=== PATIENT | female | born 1945 | race Caucasian/White ===

== ENCOUNTER 2019-08-06 23:35 | Inpatient (IN) | payer MEDICARE ==
[~2019-08-06] VITALS: Ht 152.4 cm; Wt 74.1 kg
[~2019-08-06 23:35] MED LIST: CYCLOBENZAPRINE10 MG PO
[2019-08-06 23:38] VITALS: BP 191/88
[2019-08-07] VITALS (15 sets, daily range): BP systolic 137–203; BP diastolic 57–125
[2019-08-07 01:10] LABS: HEMATOCRIT 43.8 % (37.0-47.0); MEAN CELL VOLUME 89.9 fl (81.0-99.0); MEAN CORPUSCULAR HGB 30.8 pg (27.0-31.0); MEAN CORPUSCULAR HGB CONC 34.2 g/dl (33.0-37.0); MEAN PLATELET VOLUME 12.7 fl (9.6-12.3); PLATELET COUNT AUTOMATED 143 10*3/uL (130-400); RED BLOOD COUNT 4.87 10*6/uL (4.10-5.10); WHITE BLOOD COUNT 14.1 10*3/uL (4.8-10.8)
[2019-08-07 01:27] LABS: ALBUMIN 3.8 gm/dl (3.1-4.5); ALKALINE PHOSPHATASE 116 U/L (45-117); BUN 15 mg/dl (7-24); CHLORIDE 108 mmol/L (98-107); CREATININE 0.92 mg/dL (0.55-1.02); POTASSIUM 3.5 mmol/L (3.5-5.1); SGOT/AST 41 IU/L (3-35); SGPT/ALT 27 U/L (12-78); SODIUM 138 mmol/L (136-145); TOTAL PROTEIN 7.3 gm/dL (6.4-8.2)
[2019-08-07 01:30] LABS: TROPONIN I < 0.015 ng/ml (<0.045)
[2019-08-07 01:37] LABS: PLATELET SUFFICIENCY NORMAL (NORMAL); TOTAL CELLS COUNTED 100 #CELLS
--- NOTE | 2019-08-07 10:03 | NUR ---
PT RESTING WITHOUT ANY COMPLAINTS, NO ACTIVE VOIMTING NOTED. FAMILY AT THE BEDSIDE. PT WAS WANTING TO BE ADMITTED HERE IF POSSIBLE. NOTIFIED DR FRANKLIN WITH THERE REQUEST. HOSPITALIST TO BE NOTIFIED.
--- NOTE | 2019-08-07 11:30 | NUR ---
A 73, admitted to , under the services of DANIELLE Cherry DO with a diagnosis of GI BLEED, HTN. Chief complaint is FALL, NAUSEA, VOMITING. Patient arrived via bed from ER. Monitor applied. Initial assessment completed. Vital signs taken and recorded. DANIELLE CHERRY DO notified of admission to the unit. Orders received. See assessment for past medical history, medications and allergies. Patient and/or family oriented to unit. [facility] visitation policy reviewed. Clothing/patient valuable form completed. SATURNINO ROMERO
[2019-08-07] MEDS ORDERED: PRESERVISION A1 EAC1 PO (11:37)
[2019-08-07] MEDS ORDERED: ALEVE220 M1 PO (11:37)
--- NOTE | 2019-08-07 12:09 | NUR ---
NICKIE CUEVAS NOTIFIED OF BP
[2019-08-07 17:57] LABS: BLOOD TRACE-LYSED (NEGATIVE); CLARITY SL CLOUDY (CLEAR); COLOR YELLOW (YELLOW); SPECIFIC GRAVITY 1.025 (1.005-1.030)
[2019-08-07 17:58] LABS: BACTERIA 3+; BILIRUBIN NEGATIVE (NEGATIVE); GLUCOSE NEGATIVE (NEGATIVE); KETONE NEGATIVE (NEGATIVE); LEUKO ESTERASE NEGATIVE (NEGATIVE); NITRITE NEGATIVE (NEGATIVE); UROBILINOGEN 0.2 E.U./dl (0.2-1.0); WBC 31-40 wbc/hpf (0-5)
[2019-08-07 17:59] LABS: RBC 0-2 rbc/hpf (0-2)
[2019-08-07 18:06] LABS: HEMATOCRIT 39.8 % (37.0-47.0); HEMOGLOBIN 13.7 g/dl (12.0-16.0)
--- NOTE | 2019-08-07 19:27 | NUR ---
NOTIFIED OF LABS
[2019-08-08] VITALS (7 sets, daily range): BP systolic 138–184; BP diastolic 56–90
--- NOTE | 2019-08-08 | NUR ---
PT RESTING IN BED WITH EYES CLOSED, AWAKENS WITH EASE. RESP NONLABORED. NO ACUTE DISTRESS NOTED. NO COMPLAINTS VOICED. IV PATENT AND IVF'S INFUSING ORDERED WITHOUT DIFFICULTY.
[2019-08-08 08:00] LABS: BASO % 0.2 % (0.0-1.0); EOS % 0.1 % (1.0-4.0); HEMATOCRIT 41.7 % (37.0-47.0); HEMOGLOBIN 14.1 g/dl (12.0-16.0); LYMPH # 1.5 10*3/uL (1.3-4.4); LYMPH % 16.3 % (27.0-41.0); MEAN CELL VOLUME 89.3 fl (81.0-99.0); MEAN CORPUSCULAR HGB 30.2 pg (27.0-31.0); MEAN CORPUSCULAR HGB CONC 33.8 g/dl (33.0-37.0); MEAN PLATELET VOLUME 12.9 fl (9.6-12.3); MONO # 0.5 10*3/uL (0.1-1.0); MONO % 5.1 % (3.0-9.0); NEUT # 7.3 10*3/uL (2.3-7.9); NEUT % 77.9 % (47.0-73.0); PLATELET COUNT AUTOMATED 149 10*3/uL (130-400); RED BLOOD COUNT 4.67 10*6/uL (4.10-5.10); RED CELL DISTRI WIDTH 13.2 % (0-14.5); WHITE BLOOD COUNT 9.4 10*3/uL (4.8-10.8)
[2019-08-08 08:22] LABS: ALBUMIN 3.5 gm/dl (3.1-4.5); ALKALINE PHOSPHATASE 102 U/L (45-117); BUN 12 mg/dl (7-24); CHLORIDE 109 mmol/L (98-107); CHOLESTEROL 150 mg/dL (<200); CREATININE 0.89 mg/dL (0.55-1.02); FREE T4 1.22 ng/dl (0.76-1.46); HDL CHOLESTEROL 50 mg/dl (40-60); LDL CHOLESTEROL 76 mg/dL (9-159); PHOSPHOROUS 1.7 mg/dL (2.5-4.9); POTASSIUM 3.2 mmol/L (3.5-5.1); SGOT/AST 39 IU/L (3-35); SGPT/ALT 28 U/L (12-78); SODIUM 140 mmol/L (136-145); TOTAL PROTEIN 7.1 gm/dL (6.4-8.2); TRIGLYCERIDES 122 mg/dl (<150); VLDL CHOLESTEROL 24 mg/dL (6-40)
--- NOTE | 2019-08-08 08:24 | NUR ---
PATIENT C/O RIGHT HIP PAIN WITH MOVEMENT AND AMBULATION. MEDICATED WITH ULTRAM PER PRN ORDER. WILL CONTINUE TO MONITOR.
--- NOTE | 2019-08-08 08:35 | NUR ---
BLOOD PRESSURE 184/90 MANUALLY. NOTIFIED SONIDO AND NORVASC GIVEN AT THIS TIME.
[2019-08-08 08:39] LABS: VITAMIN D, 25-HYDROXY 18.1 ng/mL (30-100)
--- NOTE | 2019-08-08 09:00 | NUR ---
Chip Applying Machine Tender in to talk to patient. Patient states lives at home with her daughter, son-in-law, and grandson. There are 12 steps in the home. Physician: no family physician [facility]acy: [facility] Home health services: none Patient's level of ADLs: INDEPENDENT Patient has working utilities: yes DME: none Follow-up physician's appointment after d/c: will be made by the hospitalist nurse director upon discharge Does patient want to access PORTAL?: no Discharge plan discussed with patient. She lives at home with her family. She is independent in her ADLs and ambulation. Discussed home health care services and she denies any home needs at this time. When medically stable she will be discharged to home. She states her daughter will provide transportation on discharge. RENATA CONNELL
--- NOTE | 2019-08-08 09:30 | NUR ---
ULTRAM EFFECTIVE. WILL CONTINUE TO MONITOR.
--- NOTE | 2019-08-08 12:35 | NUR ---
BLOOD PRESSURE 182/84 MANUALLY. MEDICATED WITH APRESOLINE 10MG IV PER PRN ORDER. WILL CONTINUE TO MONITOR.
--- NOTE | 2019-08-08 14:05 | NUR ---
Nursing screen received and chart reviewed. Patient admitted for GI bleed and a fall. If patient has a decline in ADLs, functional transfers, and mobility, please send OT orders. Thank you. Kathya May, OTR/L
--- NOTE | 2019-08-08 14:30 | NUR ---
RECHECKED BLOOD PRESSURE. 140/80 MANUALLY. APRESOLINE EFFECTIVE.
--- NOTE | 2019-08-08 15:01 | NUR ---
PHYSICAL THERAPY Screen received pt is from home with fall down steps and GI bleed. Pt would benefit from PT consult to assess mobility and overall safety once medically appropriate, thank you Elisabeth Toney PT
--- NOTE | 2019-08-08 20:00 | NUR ---
PT RESTING IN BED TALKING WITH FAMILY, A&O, PLEASANT AND COOPERATIVE. RESP NONLABORED. NO ACUTE DISTRESS NOTED. NO COMPLAINTS VOICED. HOLLIE PATENT.
[2019-08-09] VITALS (10 sets, daily range): BP systolic 133–187; BP diastolic 64–90
--- NOTE | 2019-08-09 00:15 | NUR ---
MEDICATED WITH APRESSOLINE 10MG IV PER PRN ORDER FOR BP 178/90. DR HURST NOTIFIED.
[2019-08-09 06:33] LABS: BASO % 0.2 % (0.0-1.0); EOS % 0.3 % (1.0-4.0); HEMOGLOBIN 15.8 g/dl (12.0-16.0); LYMPH # 2.7 10*3/uL (1.3-4.4); MEAN CELL VOLUME 89.3 fl (81.0-99.0); MEAN CORPUSCULAR HGB 30.7 pg (27.0-31.0); MEAN CORPUSCULAR HGB CONC 34.3 g/dl (33.0-37.0); MEAN PLATELET VOLUME 12.9 fl (9.6-12.3); MONO # 0.7 10*3/uL (0.1-1.0); MONO % 6.1 % (3.0-9.0); NEUT # 7.7 10*3/uL (2.3-7.9); NEUT % 69.1 % (47.0-73.0); RED BLOOD COUNT 5.15 10*6/uL (4.10-5.10); RED CELL DISTRI WIDTH 13.2 % (0-14.5); WHITE BLOOD COUNT 11.1 10*3/uL (4.8-10.8)
[2019-08-09 06:39] LABS: PLATELET COUNT AUTOMATED 217 10*3/uL (130-400)
[2019-08-09 07:57] LABS: ALKALINE PHOSPHATASE 119 U/L (45-117); BUN 12 mg/dl (7-24); CHLORIDE 107 mmol/L (98-107); CREATININE 0.95 mg/dL (0.55-1.02); POTASSIUM 3.5 mmol/L (3.5-5.1); SGOT/AST 38 IU/L (3-35); SGPT/ALT 31 U/L (12-78); SODIUM 136 mmol/L (136-145); TOTAL PROTEIN 7.4 gm/dL (6.4-8.2)
--- NOTE | 2019-08-09 07:57 | NUR ---
MORNING ASSESSMENT COMPLETE. PT SLEEPING, AROUSES EASILY. NO VOICED COMPLAINTS AT THIS TIME. ORQUIDEA LUNDBERG [facility]
--- NOTE | 2019-08-09 09:00 | NUR ---
Advertising Copy Writer in to see patient. No new needs or request at this time. She denies any home needs. When medically stable she will be discharged to home.
--- NOTE | 2019-08-09 10:28 | NUR ---
PT VISITING FAMILY, WAITING TO GO DOWN FOR EGD. PATIENT PLEASANT AND COOPERATIVE. [facility]
--- NOTE | 2019-08-09 11:20 | NUR ---
TO SURGERY ACCOMPANIED BY SURGICAL PERSONNELL ORQUIDEA LUNDBERG [facility]
--- NOTE | 2019-08-09 13:20 | NUR ---
BACK FROM SURGERY ORQUIDEA LUNDBERG [facility]
--- NOTE | 2019-08-09 13:42 | NUR ---
PT RESTING IN BED WITH FAMILY AT BEDSIDE. PT BP 187/86, NORVASC GIVEN SCHEDULED. ORQUIDEA LUNDBERG [facility]
--- NOTE | 2019-08-09 21:08 | NUR ---
PATIENT ASSESSMENT COMPLETED AT THIS TIME WITHOUT INCIDENT, MEDICATIONS GIVEN WITHOUT INCIDENT. CALL LIGHT WITHIN REACH WILL CONTINUE TO MONITOR.
[2019-08-10] VITALS: BP 150/77
[2019-08-10 08:00] VITALS: BP 150/92
[2019-08-10 12:00] VITALS: BP 157/83
[2019-08-10] MEDS ORDERED: AMLODIPINE BESY10 MG PO (12:50)
[2019-08-10] MEDS ORDERED: PANTOPRAZOLE SO40 MG PO (12:50)
--- NOTE | 2019-08-10 13:13 | NUR ---
PATIENT DISCHARGE TO HOME.
== END 2019-08-10 13:13 | disposition home or self-care (01) | DRG 378 ==
LOC: ED 23:35 → EDHOLD 08-07 10:12 → 4E 08-07 10:12
PROVIDERS: Emergency Medicine; Registered Nurse; ADMIT Internal Medicine
PROC: 0DB68ZX Excision of Stomach, Via Natural or Artificial Opening Endoscopic, Diagnostic (ICD-10-PCS; principal; 2019-08-09)
DX: K25.4 Chronic or unspecified gastric ulcer with hemorrhage (principal); I16.1 Hypertensive emergency; S09.90XA Unspecified injury of head, initial encounter; D72.829 Elevated white blood cell count, unspecified; E87.8 Other disorders of electrolyte and fluid balance, not elsewhere classified; K21.9 Gastro-esophageal reflux disease without esophagitis; K44.9 Diaphragmatic hernia without obstruction or gangrene; I10 Essential (primary) hypertension; K29.71 Gastritis, unspecified, with bleeding; Z87.891 Personal history of nicotine dependence; Z79.899 Other long term (current) drug therapy

== ENCOUNTER → 2019-08-30 | Outpatient (CLI) | payer MEDICARE ==
[~2019-08-30] MED LIST changes: +ALEVE220 M1 PO; +AMLODIPINE BESY10 MG PO; +PANTOPRAZOLE SO40 MG PO; +PRESERVISION A1 EAC1 PO
[2019-08-30 10:32] LABS: BASO % 0.3 % (0.0-1.0); EOS % 0.4 % (1.0-4.0); HEMATOCRIT 44.5 % (37.0-47.0); HEMOGLOBIN 15.5 g/dl (12.0-16.0); LYMPH # 1.5 10*3/uL (1.3-4.4); LYMPH % 19.1 % (27.0-41.0); MEAN CELL VOLUME 87.3 fl (81.0-99.0); MEAN CORPUSCULAR HGB 30.4 pg (27.0-31.0); MEAN CORPUSCULAR HGB CONC 34.8 g/dl (33.0-37.0); MEAN PLATELET VOLUME 11.9 fl (9.6-12.3); MONO # 0.5 10*3/uL (0.1-1.0); NEUT # 5.9 10*3/uL (2.3-7.9); NEUT % 73.8 % (47.0-73.0); PLATELET COUNT AUTOMATED 200 10*3/uL (130-400); RED CELL DISTRI WIDTH 12.9 % (0-14.5)
== END | disposition home or self-care (01) ==
LOC: RESCLI 00:11
PROVIDERS: Internal Medicine
DX: T39.395D Adverse effect of other nonsteroidal anti-inflammatory drugs [NSAID], subsequent encounter (principal); Z53.20 Procedure and treatment not carried out because of patient's decision for unspecified reasons; H35.30 Unspecified macular degeneration; I10 Essential (primary) hypertension

== ENCOUNTER → 2019-12-12 | Outpatient (CLI) | payer MEDICARE | END | disposition home or self-care (01) | LOC: RESCLI 00:48 | DX: Z12.31 Encounter for screening mammogram for malignant neoplasm of breast (principal); Z12.11 Encounter for screening for malignant neoplasm of colon; R00.0 Tachycardia, unspecified; I10 Essential (primary) hypertension; T39.395D Adverse effect of other nonsteroidal anti-inflammatory drugs [NSAID], subsequent encounter; H35.3220 Exudative age-related macular degeneration, left eye, stage unspecified; F17.200 Nicotine dependence, unspecified, uncomplicated; Z79.899 Other long term (current) drug therapy; Z79.82 Long term (current) use of aspirin ==

== ENCOUNTER → 2019-12-25 | Outpatient (CLI) | payer MEDICARE | END | disposition home or self-care (01) | LOC: MAMMO 10:45 | DX: Z12.31 Encounter for screening mammogram for malignant neoplasm of breast (principal) ==